=== PATIENT | female | born 1965 | race Hispanic/Latino ===

== ENCOUNTER 2019-03-23 17:00 | Emergency (ER) | payer OTHER, SELFPAY ==
[2019-03-23 17:10] VITALS: BP 115/80; PULSE 86; RESP 12; TEMP 36.4; O2SAT 98
[2019-03-23 17:14] VITALS: PULSE 80
--- NOTE | 2019-03-23 18:33 | ED.EXTPRO ---
HPI - Extremity Problem <Graciela Walker PA-C - Last Filed: 03/23/19 20:38> General Chief complaint: Extremity Problem,Nontraumatic Stated complaint: rt leg pain, no known injury Time Seen by Provider: 03/23/19 17:56 Source: patient Mode of arrival: Ambulatory Limitations: no limitations History of Present Illness HPI Narrative: This 54-year-old female comes to ED secondary to worsening right hip and upper extremity pain. She states that she began have worsening pain last Friday, seems to originate in the posterior and lateral hip and radiates down the side of her leg to about the knee. She denies any weakness or paresthesia. She can't think of any clear exacerbating or alleviating features for pain aside from perhaps sleeping on that side. She has tried heat, acetaminophen, Aleve, and Advil and lidocaine patch without relief. She also took 1 of her 's tramadol last night, not sure whether maybe it helped a little bit. She states that pain has progressively worsened to the point she has missed work the last couple of days, unable to get in with her PCP until next month so came here. She denies any specific injury. States a few months ago she had some brief back pain after caring a large box, then again a month ago on that side after doing cleaning. She states she had a charley horse in the right thigh a couple of weeks ago as well. All of the symptoms resolved on their own prior to this starting, but all were on the right side. She denies any other fall or recent injury. She denies any new fever. She denies any rash. She denies new bowel or bladder changes. She states that she did try the anti-inflammatories but is not supposed to use them due to diabetes and kidney issues. She is not sure what her kidney numbers/renal function is Related Data Home Medications Medication Instructions Recorded Confirmed albiglutide [Tanzeum] 50 mg SC #0 05/01/16 Previous Rx's Medication Instructions Recorded hydrocodone-acetaminophen [[place]] 1 tab PO Q6H PRN #8 tab 03/23/19 methocarbamol 500 mg PO Q6H PRN #14 tab 03/23/19 Allergies Allergy/AdvReac Type Severity Reaction Status Date / Time erythromycin base Allergy Unknown Unverified 07/16/17 12:11 [ERYTHROMYCIN BASE] Penicillins [PENICILLINS] Allergy Unknown HIVES Unverified 07/16/17 12:11 Review of Systems <Graciela Walker PA-C - Last Filed: 03/23/19 20:38> Review of Systems ROS Unobtainable: All systems reviewed & are unremarkable except as noted in HPI and below Patient History <Graciela Walker PA-C - Last Filed: 03/23/19 20:38> Medical History (Updated 03/23/19 @ 19:55 by Graciela Walker PA-C) Anxiety (Chronic) Diabetes mellitus, insulin dependent (IDDM), controlled (Chronic) Hyperlipidemia (Chronic) Surgical History (Updated 03/23/19 @ 18:54 by Graciela Walker PA-C) History of bladder suspension procedure (Resolved) Status post cholecystectomy (Resolved) Status post hysterectomy (Resolved) Social History (Updated 03/23/19 @ 18:54 by Graciela Walker PA-C) Smoking Status: Never smoker Substance Use Type: does not use Exam <Graciela Walker PA-C - Last Filed: 03/23/19 20:38> Narrative Exam Narrative: GENERAL APPEARANCE: Patient sitting comfortably, in no distress. PULMONARY: Lungs clear to auscultation bilaterally CV: Regular rhythm regular without murmur, normal S1 and S2, no S3 or S4 MUSCULOSKELETAL: No point tenderness over the lumbar spine or sacral spine. Minimal tenderness at and inferior to the right SI, moderate tenderness over the lateral hip and TFL distribution. No tenderness over the thigh your knee. Full AROM of trunk. Full passive range of motion right hip and knee without tenderness. Normal sit:stand and gait. Lower extremity strength 5/5 bilateral hip flexors, knee extensors, foot plantar flexion. Negative modified straight leg raise NEUROLOGIC: Lower extremity sensation grossly intact EXTREMITIES: No edema, no calf tenderness Initial Vital Signs Initial Vital Signs: Vital Signs Temperature 97.5 F L 03/23/19 17:10 Pulse Rate 86 03/23/19 17:10 Respiratory Rate 12 03/23/19 17:10 Blood Pressure 115/80 03/23/19 17:10 Pulse Oximetry 98 03/23/19 17:10 <Catalina Crawley DO - Last Filed: 03/24/19 00:24> Initial Vital Signs Initial Vital Signs: Vital Signs Temperature 97.5 F L 03/23/19 17:10 Pulse Rate 86 03/23/19 17:10 Respiratory Rate 12 03/23/19 17:10 Blood Pressure 115/80 03/23/19 17:10 Pulse Oximetry 98 03/23/19 17:10 Course <Graciela Walker PA-C - Last Filed: 03/23/19 20:38> Course Additional Information: Patient is unable to take NSAIDs apparently. She did not have any clear relief with cyclobenzaprine. I did give her a prescription for methocarbamol to try, as well as a little bit of [place], which she has tolerated without problems in the past after surgeries. Suspect bursitis/TFL syndrome based on history and presentation. X-ray negative for acute findings. She agrees to follow up with her PCP this week Orders Ordered: ED Orders 03/23/19 18:47 XR hip w pel if done RT 2V Stat Discontinued Medications Cyclobenzaprine HCl (Flexeril) 10 mg PO NOW ONE Stop: 03/23/19 18:48 Last Admin: 03/23/19 19:09 Dose: 10 mg Documented by: RIVERA Vital Signs Vital signs: Vital Signs - 8 hr 03/23/19 17:10 03/23/19 17:14 03/23/19 20:02 Temperature 97.5 F L Pulse Rate 86 78 Pulse Rate [Right Dorsalis Pedis] 80 Respiratory Rate 12 17 Blood Pressure 115/80 Blood Pressure [Left Arm] 138/72 Pulse Oximetry 98 99 <Catalina Crawley DO - Last Filed: 03/24/19 00:24> Orders Ordered: ED Orders 03/23/19 18:47 XR hip w pel if done RT 2V Stat Discontinued Medications Cyclobenzaprine HCl (Flexeril) 10 mg PO NOW ONE Stop: 03/23/19 18:48 Last Admin: 03/23/19 19:09 Dose: 10 mg Documented by: RIVERA Vital Signs Vital signs: Vital Signs - 8 hr 03/23/19 17:10 03/23/19 17:14 03/23/19 20:02 Temperature 97.5 F L Pulse Rate 86 78 Pulse Rate [Right Dorsalis Pedis] 80 Respiratory Rate 12 17 Blood Pressure 115/80 Blood Pressure [Left Arm] 138/72 Pulse Oximetry 98 99 MDM - Extremity (Nontraumatic) <Graciela Walker PA-C - Last Filed: 03/23/19 20:38> Imaging Data hip: Radiologist's impression: [address] [address] XRay Report Signed Patient: Martha Cooper [facility]#: [id number] : 1965Acct:[id number] Age/Sex: 54 / FDate of Service: 03/23/19 Loc: ED Accession Number: [id number] Procedure: XR hip w pel if done RT 2V Ordering Provider: Graciela Walker P.A-C PROCEDURE: XR HIP W PEL IF DONE RT 2V INDICATIONS: R. hip/TFL pain, NKT TECHNIQUE: 2 views of the hip were acquired. COMPARISON: None. FINDINGS: Bones: No fractures or dislocations. No suspicious bony lesions. The visualized pelvic ring appears intact. Soft tissues: No suspicious soft tissue calcifications or masses. IMPRESSION: Right hip without acute osseous abnormality. If there are persistent symptoms or clinical suspicion for pathology, then repeat radiographs or advanced imaging (CT, MRI or bone scan) should be considered for further evaluation. Dictated by: Matthieu Malhotra M.D. on 03/23/2019 at 19:24 Approved by: Matthieu Malhotra M.D. on 03/23/2019 at 19:25 Discharge Plan Departure Patient Disposition: Home Clinical Impression: Bursitis of hip, right Qualifiers: Hip bursitis location: unspecified Qualified Code(s): M70.71 - Other bursitis of hip, right hip IT band syndrome Qualifiers: Laterality: right Qualified Code(s): M76.31 - Iliotibial band syndrome, right leg Discharge Date/Time: 03/23/19 20:04 Instructions: DI for Hip Bursitis Activity Restrictions/Additional Instructions: I suspect that your pain is partly due to bursitis in your hip and inflammation of the tendon band (called the TFL or IT band) that runs from your hip down to your knee. Since you cannot take anti-inflammatory pain medicines, please continue the lidocaine patches, you can use up to 3 at a time. I have also given you a prescription for some hydrocodone/acetaminophen to use as needed since you have taken that without problems in the past. I have also given you a prescription for a different muscle relaxant then you had tonight. This is called methocarbamol (sent to [facility]). You can start this at a small dose and increase as needed, but remember that both of these medicines can make you sleepy and not to drive. Please follow-up with primary care this week to assess your progress and get additional medications or referral if needed. You should return as we talked about if you have any acutely worsening symptoms or new symptoms such as weakness, numbness, or fever Prescriptions: New methocarbamol 500 mg tablet 500 mg PO Q6H PRN (Reason: leg pain/spasm) Qty: 14 RF: 0 hydrocodone-acetaminophen [[place]] 5-325 mg tablet 1 tab PO Q6H PRN (Reason: acute hip/leg pain) Qty: 8 RF: 0 No Action albiglutide [Tanzeum] 50 MG/0.5 ML pen injector 50 mg SC Qty: 0 RF: 0 Referrals: [facility] [Provider Group] Evangelina Soto MD [Primary Care Provider] -
--- NOTE | 2019-03-23 18:47 | DI.RAD.S_ITS ---
PROCEDURE: XR HIP W PEL IF DONE RT 2V INDICATIONS: R. hip/TFL pain, NKT TECHNIQUE: 2 views of the hip were acquired. COMPARISON: None. FINDINGS: Bones: No fractures or dislocations. No suspicious bony lesions. The visualized pelvic ring appears intact. Soft tissues: No suspicious soft tissue calcifications or masses. IMPRESSION: Right hip without acute osseous abnormality. If there are persistent symptoms or clinical suspicion for pathology, then repeat radiographs or advanced imaging (CT, MRI or bone scan) should be considered for further evaluation. Dictated by: Matthieu Malhotra M.D. on 03/23/2019 at 19:24 Approved by: Matthieu Malhotra M.D. on 03/23/2019 at 19:25
[2019-03-23] MEDS: CYCLOBENZAPRINE 10 MG TABLET PO (19:09)
[2019-03-23 20:02] VITALS: BP 138/72; PULSE 78; RESP 17; O2SAT 99
== END 2019-03-23 20:04 | disposition home or self-care (01) ==
PROVIDERS: Emergency Provider Internal Medicine; Family Provider Family Medicine; PCP Family Medicine
DX: M70.71 Other bursitis of hip, right hip (principal); M76.31 Iliotibial band syndrome, right leg
CPT/HCPCS: 73502; 99282; 99283

== ENCOUNTER → 2020-03-18 10:40 | Outpatient (CLI) | payer OTHER, SELFPAY ==
[2020-03-18 11:22] LABS: Influenza A - CEPHEID Flu A NEGATIVE (NEGATIVE); Influenza B - CEPHEID Flu B NEGATIVE (NEGATIVE)
[2020-03-18 11:43] LABS: COVID19 -Nasal RAPID Negative (Negative)
== END ==
PROVIDERS: Family Provider Family Medicine; Visit Provider Nurse Practitioner
DX: Z11.59 Encounter for screening for other viral diseases (principal); R53.81 Other malaise
CPT/HCPCS: 87502; 87635

== ENCOUNTER → 2020-04-05 10:01 | Outpatient (CLI) | payer OTHER, SELFPAY ==
--- NOTE | 2020-04-05 12:50 | DIET.PN ---
Diabetes Intake: Initial Assessment Assess: Mrs. Garcia is a 55 yof referred for type 2 diabetes. She reports long standing hx since being diagnosed with GDM 22 yrs ago. She reports at diagnosis she had an A1c >14. Family hx includes mother and brother who both passed due to diabetes related complications. She admits to eating too many carbs. She does not care for sweets, but will eat large portions of pasta, break, crackers and other starches. She currently uses the freestyle meka CGM as she is concerned with frequent episodes of hypo and hyperglycemia. She states she barely feels any symptoms anymore and will randomly check to find 40-50?s. She generally enjoys walking for exercise, but has not been active since the weather has gotten colder. Labs: Per pt report: A1c: 9.3 Meds: trulicity 1x/wk; tresiba 60u am; novolog 32-40u SSI Diet: per 24 hr recall: B: mongolian yogurt w/ berries and granola; sausage egg muffin sandw; bagel w/ cc L: apple, cheese, carrots, peanut butter D: vegetarian lasagna w/ salad, toast; sausage w/ sweet potatoes; soup/salad Sn: mixed nuts, trail mix Wt: 199lb Ht: 64in BMI: 34.2 UBW: 170-190lb DX: Altered nutrition related laboratory values related to impaired glucose metabolism, lack of previous exposure to nutrition information as evidenced by pt report, diagnosis of diabetes, previous diet high in refined carbohydrates. Intervention: 1. Completed intake assessment. Discussed barriers to care. 2. Discussed pathophysiology of diabetes. Reviewed A1c and its correlation to blood glucose numbers. Discussed recommended BG ranges. 3. Discussed importance of self-monitoring, how often, and when to check. 4. Reviewed hyper/hypoglycemia and treatment. 5. Reviewed safe disposal of equipment (strip/lancets/insulin needles). 6. Created SMART goals for pt self-care and success. 7. Discussed program curriculum outline and class needs based on individual goals. SMART Goals: 1. Pt would like to lose 12-15lb (1x/wk) over the next few months by learning carb counting, portions control and engaging in 30 min of exercise 5x/wk. 2. Pt goal to reduce hypoglycemia by monitoring BG before and after meals and avoid skipping meals Monitor/Evaluate: Pt will attend full DSME program. Basic Nutrition class scheduled for Apr 18.
== END ==
PROVIDERS: Family Provider Family Medicine; PCP Internal Medicine; Referring Provider Internal Medicine Endocrinology, Diabetes & Metabolism; Visit Provider Internal Medicine Endocrinology, Diabetes & Metabolism
DX: E11.9 Type 2 diabetes mellitus without complications (principal); E66.9 Obesity, unspecified; Z79.4 Long term (current) use of insulin; Z68.34 Body mass index [BMI] 34.0-34.9, adult; Z71.3 Dietary counseling and surveillance
CPT/HCPCS: G0108

== ENCOUNTER 2021-03-10 20:32 | Emergency (ER) | payer OTHER, SELFPAY ==
[2021-03-10] VITALS (7 sets, daily range): BP systolic 148–163; BP diastolic 80–86; PULSE 81–101; RESP 19; TEMP 36.2; O2SAT 93–99; BMI 33.8
--- NOTE | 2021-03-10 20:47 | DI.RAD.S_ITS ---
PROCEDURE: XR CHEST 2V INDICATIONS: cough, low grade fever, green sputum TECHNIQUE: 2 views of the chest were acquired. COMPARISON: [facility], , CHEST 2 VIEW, 03/23/2017, 14:18. FINDINGS: Surgical changes and devices: None. Lungs and pleura: Lungs are clear. No pleural effusions or pneumothorax. Mediastinum: Mediastinal contours are normal. Heart size is normal. Bones and chest wall: No suspicious bony abnormalities. Soft tissues appear unremarkable. IMPRESSION: No acute cardiopulmonary abnormality. Dictated by: Mark Ramirez M.D. on 03/10/2021 at 21:22 Approved by: Mark Ramirez M.D. on 03/10/2021 at 21:23
[2021-03-10 21:07] LABS: COVID19 -Nasal RAPID Negative (Negative)
--- NOTE | 2021-03-10 21:21 | ED_ITS ---
HPI - URI/Sore Throat General Chief Complaint: Upper Respiratory Symptoms Stated Complaint: cold symptoms , green sputum Time Seen by Provider: 03/10/21 21:11 Source: patient Mode of arrival: Ambulatory Limitations: no limitations History of Present Illness HPI Narrative: 56-year-old female nonsmoker with history of diabetes presents for evaluation of various upper respiratory symptoms for the past few days including runny nose, nasal congestion, dry, hacking bronchospastic cough in the absence of any sputum. She states that she gets some anterior chest pain which is sharp and reproducible with cough. Various people in her family are sick with similar symptoms. She denies any significant work of breathing. She has no fever over 100 F, no nausea, vomiting or diarrhea. Related Data Home Medications Medication Instructions Recorded Confirmed aspirin 81 mg capsule 81 mg PO BEDTIME 03/10/21 03/10/21 dulaglutide 4.5 mg/0.5 mL 4.5 mg SUBCUT QWEEK 03/10/21 03/10/21 subcutaneous pen injector (Trulicity) insulin aspart U-100 100 unit/mL 40 - 60 unit SUBCUT TIDWMEAL 03/10/21 03/10/21 subcutaneous solution (Novolog U-100 Insulin aspart) insulin degludec 100 unit/mL (3 60 unit SUBCUT BEDTIME 03/10/21 03/10/21 mL) subcutaneous pen (Tresiba FlexTouch U-100 insulin) multivitamin 1 tab PO DAILY 03/10/21 03/10/21 rosuvastatin 40 mg tablet 40 mg PO BEDTIME 03/10/21 03/10/21 venlafaxine 37.5 mg 37.5 mg PO DAILY 03/10/21 03/10/21 capsule,extended release 24 hr Previous Rx's Medication Instructions Recorded benzonatate 200 mg capsule 200 mg PO BID PRN #20 cap 03/10/21 Allergies Allergy/AdvReac Type Severity Reaction Status Date / Time erythromycin base Allergy Unknown Verified 03/10/21 20:51 [ERYTHROMYCIN BASE] Penicillins [PENICILLINS] Allergy Unknown HIVES Verified 03/10/21 20:51 Review of Systems Review of Systems Narrative: GENERAL: Denies chills, fatigue, malaise, fever, sweats. HEENT: Denies sinus pain, ear pain, sore throat, difficulty swallowing, dizziness. RESPIRATORY: See HPI CARDIOVASCULAR: Denies chest pain, palpitations, orthopnea, edema, GASTROINTESTINAL: Denies nausea, vomiting, abdominal pain, diarrhea, constipation, melena. : Denies dysuria, frequency, incontinence, hematuria, urinary retention. MUSCULOSKELETAL: denies weakness, joint pain, or bony pain SKIN: Denies rash, skin lesions, or other NEUROLOGIC: Denies weakness, headache, numbness, change in speech, confusion, seizures, incoordination. PSYCHIATRIC: No concerning psychosocial issues. 12 point review of systems is negative except for those stated above Patient History Medical History Anxiety Diabetes mellitus, insulin dependent (IDDM), controlled Hyperlipidemia Surgical History History of bladder suspension procedure Status post cholecystectomy Status post hysterectomy Social History Smoking Status: Never smoker eating out: 1-3 times/week Type(s) of exercise: walking and bicycling Smoking Status: Never smoker alcohol intake frequency: 0-2 drinks per day Substance Use Type: does not use Exam Narrative Exam Narrative: GENERAL: [56 year old patient appears stated age. Well-developed patient, in mild distress. HEAD: Atraumatic. Normocephalic. EYES: Pupils equal round and reactive. Extraocular motions intact. No scleral icterus. No injection or drainage. ENT: Nose without bleeding, purulent drainage. Clear postnasal drip Throat without erythema, tonsillar hypertrophy or exudate. Airway patent. NECK: Trachea midline. Non tender CARDIOVASCULAR: Regular rate and rhythm without murmurs, gallops, or rubs. RESPIRATORY: Mild end-expiratory wheeze, deep breath illicits cough. No significant work of breathing, no use of accessory muscles tachypnea or hypoxemia GASTROINTESTINAL: Abdomen soft, non-tender, nondistended. EXTREMITIES: No edema or joint tenderness. BACK: Nontender without deformity or crepitance. No flank tenderness. NEURO: AOx3. SKIN: No rash or erythema of visible areas Initial Vital Signs Initial Vital Signs: Vital Signs Temperature 97.1 F L 03/10/21 20:40 Pulse Rate 87 03/10/21 20:40 Respiratory Rate 19 03/10/21 20:40 Blood Pressure 163/84 H 03/10/21 20:40 Pulse Oximetry 99 03/10/21 20:40 Course Orders Ordered: ED Orders 03/10/21 20:45 COVID19 -Nasal swab/Pre-Proc Stat 03/10/21 20:47 XR chest 2V Stat Discontinued Medications Albuterol (Albuterol Hfa Mdi 60 Puff/8 Gm Inhaler) 2 puff INH NOW ONE Stop: 03/10/21 21:38 Last Admin: 03/10/21 21:57 Dose: Not Given Documented by: LEXI Albuterol (Albuterol Hfa Prepack) 1 box MISC SEEINSTR ONE Stop: 03/10/21 21:57 Last Admin: 03/10/21 22:01 Dose: 1 box Documented by: PATEL Vital Signs Vital signs: Vital Signs - 8 hr 03/10/21 20:40 03/10/21 20:50 03/10/21 21:00 Temperature 97.1 F L Pulse Rate 87 86 82 Respiratory Rate 19 Blood Pressure 163/84 H 156/86 H Pulse Oximetry 99 93 94 03/10/21 21:16 03/10/21 21:30 03/10/21 22:00 Temperature Pulse Rate 101 H 89 81 Respiratory Rate Blood Pressure 161/81 H 148/80 H 153/82 H Pulse Oximetry 98 94 97 03/10/21 22:03 Temperature Pulse Rate Respiratory Rate Blood Pressure Pulse Oximetry 93 MDM - URI/Sore Throat Lab Data Labs: Lab Results 03/10/21 Range/Units 20:45 SARS-CoV-2 (PCR) Negative (Negative) Imaging Data Chest x-ray: Radiologist's Impression: No acute abnormality Discharge Plan Departure Patient Disposition: Home Clinical Impression: Viral upper respiratory tract infection Instructions: DI for Viral Upper Respiratory Infection -- Adult Activity Restrictions/Additional Instructions: *You have been diagnosed with [viral upper respiratory infection with bronchospasm. Your COVID swab is negative, her chest x-ray shows no sign of pneumonia. As we discussed there is no indication for antibiotics *What to do: *Please continue to take your regular medications as directed. In addition please consider over the counter antihistamines such as roberto, zyrtec, or claritin to help dry your secretions [ x] New medication prescriptions sent to your pharmacy: [[facility] ] [ ] New medication written as a paper prescription [ ] No new medications given *Please follow up with your primary care provider in 2-3 days, call for an appointment. Let them know you were seen in the Emergency Department and that we ask that you be seen in follow up. We will electronically transmit a record of today's note if your PCP is in our system *If you do not have a primary care provider please contact the [facility] Resource line at [phone]. They will ask some questions about your medical history and help get you set up with a doctor in the community. *Return to Emergency Department if you should have any new, worsening or concerning symptoms, such as [fever greater than 101 F, shaking chills, worsening pain, persistent vomiting or other bothersome symptoms] Prescriptions: New benzonatate 200 mg capsule 200 mg PO BID PRN (Reason: cough) Qty: 20 0RF No Action multivitamin [Daily Multivitamin] Tablet 1 tab PO DAILY 0RF venlafaxine 37.5 mg Capsule,Extended Release 24hr 37.5 mg PO DAILY 0RF insulin aspart U-100 [Novolog U-100 Insulin aspart] 100 unit/mL Solution 40 - 60 unit SUBCUT TIDWMEAL 0RF rosuvastatin 40 mg Tablet 40 mg PO BEDTIME 0RF Tresiba FlexTouch U-100 100 unit/mL (3 mL) Insulin Pen 60 unit SUBCUT BEDTIME 0RF Trulicity 4.5 mg/0.5 mL Pen Injector 4.5 mg SUBCUT QWEEK 0RF Label Comments: sundays aspirin 81 mg Capsule 81 mg PO BEDTIME 0RF Referrals: Oksana Smith MD [Primary Care Provider] -
[2021-03-10] MEDS: ALBUTEROL HFA PREPACK 1 BOX MISC (22:01)
== END 2021-03-10 22:26 | disposition home or self-care (01) ==
PROVIDERS: Emergency Provider Emergency Medicine; Family Provider Family Medicine; PCP Internal Medicine
DX: J06.9 Acute upper respiratory infection, unspecified (principal); J98.01 Acute bronchospasm; Z20.822 Contact with and (suspected) exposure to COVID-19
CPT/HCPCS: 71046; 87635; 94640; 99283; C9803; A9270

== ENCOUNTER → 2021-09-07 14:06 | Outpatient (CLI) | payer OTHER, SELFPAY ==
[2021-09-07 14:51] LABS: COVID19 -Nasal RAPID Negative (Negative)
== END ==
PROVIDERS: Family Provider Family Medicine; PCP Internal Medicine; Visit Provider Surgery
DX: Z01.812 Encounter for preprocedural laboratory examination (principal); Z20.822 Contact with and (suspected) exposure to COVID-19
CPT/HCPCS: 87635; C9803

== ENCOUNTER 2021-09-10 12:03 | Day surgery (SDC) | payer OTHER, SELFPAY ==
[2021-09-10] VITALS (7 sets, daily range): BP systolic 110–138; BP diastolic 71–84; PULSE 66–84; RESP 16; TEMP 36.2–36.6; O2SAT 96–100; BMI 32.5
[2021-09-10] MEDS: SODIUM CHLORIDE 0.9% 1,000 ML 150 ML IV (12:47)
--- NOTE | 2021-09-10 13:03 | PM.HP.1 ---
History of Present Illness History of Present Illness Date Patient Seen: 09/10/21 Time Patient Seen: 13:03 Chief complaint: SCREENING COLONOSCOPY Narrative: Family history of colon cancer in her brother. Last colonoscopy was 5 years ago and negative. Patient History Medical History Anxiety Diabetes mellitus, insulin dependent (IDDM), controlled Hyperlipidemia Surgical History History of bladder suspension procedure Status post cholecystectomy Status post hysterectomy Family & Social History Social History: household members spouse Tobacco & Substance use: Smoking Status Never smoker alcohol intake frequency holiday/special occasion Substance Use Type does not use Meds Home Medications and Allergies Home Medications Medication Instructions Recorded Confirmed Type aspirin 81 mg capsule 81 mg PO BEDTIME 03/10/21 09/10/21 History multivitamin 1 tab PO DAILY 03/10/21 09/10/21 History rosuvastatin 40 mg tablet 40 mg PO BEDTIME 03/10/21 09/10/21 History venlafaxine 37.5 mg 37.5 mg PO DAILY 03/10/21 09/10/21 History capsule,extended release 24 hr Lactobacillus acidophilus and 1 cap PO DAILY 09/10/21 09/10/21 History rhamnosus 15 billion cell capsule (Probiotic) estradiol 0.05 mg/24 hr weekly 2 patch TRANSDERMAL QWEEK 09/10/21 09/10/21 History transdermal patch insulin lispro 100 unit/mL 15 unit SUBCUT SEEINSTR 09/10/21 09/10/21 History subcutaneous pen (Humalog KwikPen (U-100) Insulin) Allergies Allergy/AdvReac Type Severity Reaction Status Date / Time Penicillins [PENICILLINS] Allergy Severe HIVES, Verified 09/10/21 12:20 Anaphylaxix erythromycin base Allergy Intermediate Unrelenting Verified 09/10/21 12:20 [ERYTHROMYCIN BASE] Vomiting Review of Systems Review of Systems ROS: Yes All systems reviewed with the patient and are negative except as otherwise documented Exam Vital Signs (past 8 hours): - 09/10/21 12:29 Temperature 97.8 F Pulse Rate 84 Respiratory Rate 16 Blood Pressure 134/84 Pulse Oximetry 98 Oxygen Delivery Method Room Air Const General: cooperative and comfortable Orientation: alert HENMT Head: normocephalic Ears: external ears normal Nose: external nose normal Face and sinus: normal facial exam Mouth: oral mucosae normal Eyes General: appearance normal, both eyes and all related structures Neck Neck: normal visual inspection Chest Chest: normal inspection of the chest Resp Effort & Inspection: normal respiratory effort Cardio Rate: regular rate GI Inspection: normal to inspection Skin General: no rashes or lesions noted and No jaundice Neuro General: patient alert and moves all extremities Cognition: normal cognition Speech: speech normal Extrem General: no pedal edema Psych Appearance: grossly normal Assessment & Plan Assessment & Plan narrative: This is a 56-year-old female with a family history of colon cancer in her brother. Colonoscopy is pursued today. Time Spent With Patient Critical Care time: I spent a total of [] minutes of critical care time on this patient's care today; this time is exclusive of procedural time.
--- NOTE | 2021-09-10 13:04 | PM.PREOP ---
Pre-operative Note COVID-19 COVID-19 status: Negative Result date/Date tested (Pos, Neg/Pending): 09/07/21 Criteria for continued procedure: Possibility delay results in more complex future surgery or treatment Interval Note History & Physical reviewed/Exam performed by Physician: Yes Changes to H&P: No ASA Class (for procedural sedation): II
--- NOTE | 2021-09-10 13:53 | P.OP.COLON_ITS ---
Operative Date/Time/Diagnoses Date of procedure: 09/10/21 Time of procedure: 13:53 Pre-op diagnosis: Family history of colon cancer. Post-op diagnosis: same Procedure & Clinicians Study performed: Colonoscopy Same procedure as scheduled: Yes Indications: Family history of colon cancer Surgeon: Phillip Osman Procedure Notes SCOAP/Timeout: Done Procedure in detail: After the risks and benefits were explained, written and verbal informed consent was obtained. The patient was brought into the procedure room and placed into the left lateral decubitus position. Please see nurse senior marketing specialist notes for sedation details. Digital rectal examination was accomplished. The scope was introduced into the patient and advanced under direct visualization to the cecum as identified by the appendiceal orifice and ileocecal valve. The scope was slowly withdrawn to carefully examine the mucosa for any defects or lesions. Comprehensive imaging was accomplished throughout the rectum including the dentate line. The colon was decompressed, the scope was then removed from the patient who tolerated the procedure well. Bowel prep adequate Pediatric colonoscope Scope withdrawal time: 7 minutes Sedation minutes: 14 Specimen(s): none sent Complications: none Impression: No significant polyps mass lesions or inflammatory features identified throughout. Grade 3 nonthrombosed nonbleeding hemorrhoids were noted. Endoscopic diagnosis 1. Grade 3 hemorrhoids 2. Otherwise visually unremarkable colonoscopy Post-procedure Recommendations: Colonoscopy in 5 years Plan for aftercare: Considering family history, repeat colonoscopy is suggested for 5 years. Disposition: PACU
== END 2021-09-10 14:45 | disposition home or self-care (01) ==
PROVIDERS: Family Provider Family Medicine; PCP Internal Medicine; Referring Provider Internal Medicine Gastroenterology; Visit Provider Internal Medicine Gastroenterology
PROC: 0DJD8ZZ Inspection of Lower Intestinal Tract, Via Natural or Artificial Opening Endoscopic (ICD-10-PCS; CPT 45378; principal; 2021-09-10 13:30)
DX: Z12.11 Encounter for screening for malignant neoplasm of colon (principal); Z80.0 Family history of malignant neoplasm of digestive organs; E11.9 Type 2 diabetes mellitus without complications; Z79.4 Long term (current) use of insulin; E78.5 Hyperlipidemia, unspecified; F41.9 Anxiety disorder, unspecified; K64.2 Third degree hemorrhoids
CPT/HCPCS: 45378; J2704

== ENCOUNTER → 2022-02-13 15:04 | Outpatient (CLI) | payer OTHER, SELFPAY ==
--- NOTE | 2022-02-13 15:05 | DI.MG.S_ITS ---
BILATERAL DIGITAL SCREENING MAMMOGRAM 3D/2D WITH CAD: 02/13/2022 CLINICAL: Routine screening. Family history of breast cancer. No prior exams were available for comparison. There are scattered areas of fibroglandular density in both breasts (category b / 25%-50% glandular tissue). Current study was also evaluated with a Computer Aided Detection (CAD) system. No significant masses, calcifications, or other findings are seen in either breast. IMPRESSION: NEGATIVE There is no mammographic evidence of malignancy. A 1 year screening mammogram is recommended. Based on the Tyrer Cuzick model (a risk assessment model) the patient's lifetime risk is 5.9% and her 10 year risk is 1.9%. According to the ACR, ACS, and NCCN guidelines, an annual breast MRI exam along with mammogram is recommended if the patient's lifetime risk is 20% or greater. This exam was interpreted at Station ID: [id number]. NOTE: For mammograms, a report in lay terms will be sent to the patient. Approximately 15% of breast malignancies will not be visualized mammographically. In the management of a palpable breast mass, a negative mammogram must not discourage biopsy of a clinically suspicious lesion. Electronically Signed By: Laina chamberlain/paulino:02/14/2022 12:24:58 letter sent: Normal Exam ACR BI-RADS Category 1: Negative [id number]
== END ==
PROVIDERS: Family Provider Family Medicine; PCP Internal Medicine; Referring Provider Internal Medicine; Visit Provider Internal Medicine
DX: Z12.31 Encounter for screening mammogram for malignant neoplasm of breast (principal); Z80.3 Family history of malignant neoplasm of breast
CPT/HCPCS: 77063; 77067

== ENCOUNTER → 2023-11-24 15:19 | Outpatient (CLI) | payer OTHER, SELFPAY ==
--- NOTE | 2023-11-24 15:21 | DI.RAD.S_ITS ---
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 COMPARISON: None. FINDINGS: Bones: Angulated fracture of the 5th metacarpal neck. Soft tissues: No suspicious soft tissue calcifications. Soft tissue swelling along the dorsal hand. IMPRESSION: Angulated fracture of the 5th metacarpal neck. Dictated by: Luis M Otero M.D. on 11/24/2023 at 16:00 Approved by: Luis M Otero M.D. on 11/24/2023 at 16:00
== END ==
LOC: RAD 15:20
PROVIDERS: Family Provider Family Medicine; PCP Internal Medicine; Referring Provider Student in an Organized Health Care Education/Training Program; Visit Provider Student in an Organized Health Care Education/Training Program
DX: S62.336A Displaced fracture of neck of fifth metacarpal bone, right hand, initial encounter for closed fracture (principal); S69.91XA Unspecified injury of right wrist, hand and finger(s), initial encounter; X58.XXXA Exposure to other specified factors, initial encounter
CPT/HCPCS: 73130

== ENCOUNTER 2023-12-02 09:09 | Day surgery (SDC) | payer OTHER, SELFPAY ==
[2023-12-02] MEDS: ACETAMINOPHEN 325 MG TABLET 975 MG PO (09:20)
[2023-12-02] MEDS: LACTATED RINGERS 1,000 ML 42 ML IV (09:21)
[2023-12-02 09:33] VITALS: BP 152/90; PULSE 80; RESP 18; TEMP 36.1; O2SAT 98
[2023-12-02 09:35] VITALS: BMI 32.2
[2023-12-02] MEDS: INSULIN REGULAR 100 UNIT/ML 3 ML VIAL IV ×3 (11:43→13:10)
--- NOTE | 2023-12-02 11:43 | PM.PREOP ---
Pre-operative Note Interval Note History & Physical reviewed/Exam performed by Physician: Yes Changes to H&P: No
--- NOTE | 2023-12-02 11:44 | PM.OP.1 ---
Operative Date/Time/Diagnoses Date of procedure: 12/02/23 Time of procedure: 11:55 Pre-op diagnosis: Right 5th metacarpal fracture displaced Post-op diagnosis: same Procedure & Clinicians Procedure: Closed reduction and percutaneous pinning right 5th metacarpal neck fracture Same procedure as scheduled: Yes Indications: This is a 58-year-old female who hit a wall and sustained a displaced right 5th metacarpal neck fracture. She was brought to the operating room for closed reduction and pinning possible open reduction internal fixation. The procedure options risks benefits and complications were discussed detail. She understands and is interested in pursuing reduction in order to improve her overall alignment of her finger. Surgeon: Zeenat Herbert Click Yes if Unassisted: Yes Anesthesia Type: General Operative Notes Findings: Adequate reduction stable fixation with pins Closure Type: not applicable Specimen(s): none sent Prosthetic devices, grafts, tissues, transplants, or devices: K-wire 0.54 mm Estimated Blood Loss (mL): 5 Blood products transfused: none Procedure in detail: Patient was brought to the operating room. She under went induction of anesthesia. A time-out was performed. Her finger was carefully reduced. She was given IV antibiotics. Her right upper extremity was prepped and draped standard sterile fashion. Mini C-arm was used and the fracture was meticulously reduced. I confirmed the reduction with fluoroscopy. Fracture was then stabilized with two 0.54 K-wires. The K-wires were cut and bent and carefully adjusted. X-ray confirmed reduction and pin position. The wound was dressed sterilely and Marcaine was injected. She was placed in an ulnar gutter splint. Complications: none Post-operative Condition: stable Disposition: same day surgery Plan for aftercare: Keep splint dry. Return to clinic in 3 weeks for x-rays out of plaster.
[2023-12-02] MEDS: CLINDAMYCIN 900 MG/50 ML PIGGYBACK 50 MG IV (11:55)
--- NOTE | 2023-12-02 11:59 | SUR.OPER ---
Supine on padded OR bed, head on pillow, right arm secured on padded arm boards at <90 degrees abduction, left operative arm on arm table under control of surgeon, legs uncrossed, safety belt at thigh, tape over blanket over lower legs.
[2023-12-02] MEDS: BUPIVACAINE 0.5% W/ EPI (PF) 10 ML VIAL INJ (12:11)
[2023-12-02 12:32] VITALS: BP 119/75; PULSE 89; RESP 18; TEMP 36.9; O2SAT 93
[2023-12-02 12:37] VITALS: BP 118/75; PULSE 89; RESP 20; TEMP 36.9; O2SAT 93
[2023-12-02 12:43] VITALS: BP 119/78; PULSE 94; RESP 22; TEMP 36.7; O2SAT 96
[2023-12-02 12:48] VITALS: BP 130/79; PULSE 89; RESP 17; TEMP 36.7; O2SAT 97
[2023-12-02 12:53] VITALS: BP 132/80; PULSE 85; RESP 17; TEMP 36.7; O2SAT 98
[2023-12-02] MEDS: OXYCODONE IR 5 MG TABLET PO (13:04)
== END 2023-12-02 13:24 | disposition home or self-care (01) ==
PROVIDERS: Family Provider Family Medicine; PCP Nurse Practitioner Family; Referring Provider Orthopaedic Surgery; Visit Provider Orthopaedic Surgery
PROC: (CPT 26607; principal; 2023-12-02 10:45)
DX: S62.336A Displaced fracture of neck of fifth metacarpal bone, right hand, initial encounter for closed fracture (principal); W22.09XA Striking against other stationary object, initial encounter; E11.9 Type 2 diabetes mellitus without complications; Z79.4 Long term (current) use of insulin
CPT/HCPCS: 26607; 82962; J1100; J1885; J2405; J2704; J2765; J3010

== ENCOUNTER → 2024-01-12 10:41 | Outpatient (CLI) | payer OTHER, SELFPAY ==
--- NOTE | 2024-01-12 | DI.RAD.S_ITS ---
PROCEDURE: XR DEXA AXIAL SKELETON INDICATIONS: OSTEOPOROSIS COMPARISON: None. FINDINGS: Lumbar Spine: L1-L4 Bone mineral density 1.034 g/cm2, T score -0.1. Left Hip: Bone mineral density 1.007 g/cm2, T score 0.5. Left Femoral Neck: Bone mineral density 0.827 g/cm2, T score -0.2. Right Hip: Bone mineral density 1.045 g/cm2, T score 0.8. Right Femoral Neck: Bone mineral density 0.865 g/cm2, T score 0.1. Fracture Risk Calculation (when applicable): 10-year fracture risk of a major osteoporotic fracture 7.5 percent and of a hip fracture 0.2 percent. (T score greater or equal to -1.0 to: NORMAL) (T score from -1.1 to -2.4: OSTEOPENIA) (T score less than or equal to -2.5: OSTEOPOROSIS) IMPRESSION: Normal. Follow-up guidelines as follows: Osteoporosis: Consider a repeat DEXA and Vertebral Fracture Assessment (VFA) exam in 2 years or sooner if medically necessary, to reassess this patient's status. Osteopenia: Consider a repeat DEXA in 2-3 years to reassess this patient's status, or if there is a new clinical indication. Normal: Consider a repeat DEXA in 5 years or sooner, or if there is a new clinical indication. All treatment decisions require clinical judgment and consideration of individual patient factors, including patient preferences, comorbidities, previous drug use, risk factors not captured in the FRAX model (e.g., frailty, falls, vitamin D deficiency, increased bone turnover, interval significant decline in bone density ) and possible under- or over-estimation of fracture risk by FRAX. In addition, the NOF Guide recommends that FDA-approved medical therapies be considered in postmenopausal women and men age >= 50 years with a: * Hip or vertebral (clinical or morphometric) fracture * T-score of <=-2.5 at the spine or hip * Ten-year fracture probability by FRAX of >= 3% for hip fracture or >=20% for major osteoporotic fracture. People with diagnosed cases of osteoporosis or at high risk for fracture should have regular bone mineral density tests. For patients eligible for Medicare, routine testing is allowed once every 2 years. The testing frequency can be increased to one year for patients who have rapidly progressing disease, those who are receiving or discontinuing medical therapy to restore bone mass, or have additional risk factors. Dictated by: Jesus Aggarwal M.D. on 01/12/2024 at 15:20 Approved by: Jesus Aggarwal M.D. on 01/12/2024 at 15:22
== END ==
PROVIDERS: Family Provider Family Medicine; PCP Nurse Practitioner Family
DX: S62.326A Displaced fracture of shaft of fifth metacarpal bone, right hand, initial encounter for closed fracture (principal); N95.9 Unspecified menopausal and perimenopausal disorder
CPT/HCPCS: 77080

== ENCOUNTER → 2024-04-13 14:45 | Outpatient (CLI) | payer OTHER, SELFPAY ==
--- NOTE | 2024-04-13 | DI.RAD.S_ITS ---
PROCEDURE: XR KUB INDICATIONS: needed for mri metal r/o TECHNIQUE: One view of the abdomen acquired. COMPARISON: None. FINDINGS: Surgical changes and devices: Surgical clips in right upper quadrant compatible with prior cholecystectomy.. Bowel: Bowel gas pattern is normal. Soft tissues: No suspicious abdominal calcifications. Visualized solid organ contours appear normal in size. Bones: No suspicious bony lesions. IMPRESSION: No acute abnormality. Cholecystectomy clips are noted in the right upper quadrant. Dictated by: Matthieu Malhotra M.D. on 04/13/2024 at 15:28 Approved by: Matthieu Malhotra M.D. on 04/13/2024 at 15:29
--- NOTE | 2024-04-13 | DI.MRI.S_ITS ---
PROCEDURE: MR HEAD/BRAIN WO/W CON INDICATIONS: COGNITIVE DEFICITS,PREVIOUS BASAL GANGLIA CALC TECHNIQUE: Noncontrast axial T1 spin echo, axial T2 fast spin echo, sagittal and axial FLAIR, coronal T2 fast spin echo, axial gradient echo, axial diffusion and ADC through the brain. After the administration of contrast, axial and coronal and sagittal 3D VIBE or T1 spin echo with fat saturation through the brain. COMPARISON: CT, HEAD WITHOUT CONTRAST, 06/08/2015, 12:26. FINDINGS: Image quality: Excellent. CSF Spaces: Basal cisterns are patent. No extra-axial fluid collections. Ventricles are normal in size and shape. Brain: No midline shift. No intracranial bleeds or masses. No abnormal intracranial enhancement. The brainstem appears normal. Diffusion-weighted images demonstrate no acute infarct. No chronic ischemic insults. Normal intravascular flow voids are present. Minimal scattered areas of periventricular and subcortical white matter hyperintensities are present. Hypointensity on gradient sequence is present within the basal ganglia corresponding to prior calcifications. Skull and face: Calvarial marrow is normal in signal. Orbits appear normal. Sinuses: Sinuses and mastoids appear clear. IMPRESSION: 1. No acute intracranial process. 2. Minimal scattered periventricular and subcortical white matter hyperintensities. These are overall nonspecific. They can be related to early changes of chronic microvascular ischemia. Other etiology such as vasculitis, sequela of migraine/infection/inflammation or potentially demyelinating disease should be considered as clinically appropriate. 3. Gradient sequence hypointensity within the basal ganglia bilaterally corresponding to calcifications. They are relatively unchanged compared to 2016. As previously noted, these are typically idiopathic senescent findings. However, given patient age, other etiology such exposure to toxins or metabolic disorder should be considered. Dictated by: Melani Suero M.D. on 04/14/2024 at 10:49 Approved by: Melani Suero M.D. on 04/14/2024 at 10:54
== END ==
PROVIDERS: Family Provider Family Medicine
DX: Z01.818 Encounter for other preprocedural examination (principal); G23.8 Other specified degenerative diseases of basal ganglia; R41.9 Unspecified symptoms and signs involving cognitive functions and awareness; Z81.8 Family history of other mental and behavioral disorders
CPT/HCPCS: 70553; 74018; A9579